=== PATIENT | female | born 1950 ===

== ENCOUNTER 2018-08-15 00:50 | Inpatient (IN) | payer MEDICARE, MEDICAID ==
[2018-08-15 01:03] VITALS: BMI 30.5
[2018-08-15 01:05] VITALS: O2SAT 96
--- NOTE | 2018-08-15 01:08 | ED PDOC ---
Psych Transfer Clearance - Clearance Statement Clearance Statement: Reviewed vital signs, lab results and transfer papers. Patient clinically stable for psychiatric admission. pt was cleared by previous attending - Dr Hayes
[2018-08-15] MEDS ORDERED: Alum-Mag Hydrox-Simethicone Susp (30 mL) PO PRN (01:28)
[2018-08-15] MEDS ORDERED: Magnesium Hydroxide Susp 30 ml UD PO PRN (01:28)
[2018-08-15] MEDS ORDERED: Bismuth Subsalicylate 262 mg/15 ml Sus (240 ml) PO PRN (01:28)
--- NOTE | 2018-08-15 02:18 | PCM.BM ---
<Stephanie Dill - Last Filed: 08/15/18 02:16> Treatment Plan Problems - Problems identified on initial assessmt Anxiety Date Initiated: 08/15/18 Time Initiated: 02:16 Assessment reference: NA Status: Active Altered Sleep Patterns Date Initiated: 08/15/18 Time Initiated: 02:16 Assessment reference: NA Status: Active Treatment assets and liabiliti Patient Assests: cooperative, ADL independent, negotiates basic needs Patient Liabilities: physical pain, relationship conflicts - Milieu Protocol Maintain good personal hygiene: daily Encourage regular showers, daily Remind patient to perform daily oral care, daily Assist patient to perform ADL's Conduct patient checks and document Observation sheet: Q15 minutes Maintain personal safety: every shift Educate patient to report safety concerns to staff, every shift Monitor environment for contraband/sharps Medication safety: Monitor for expected outcome, potential side effects: every shift, Assess barriers to learning: every shift, Assess readiness for medication education: every shift <Any Lamb - Last Filed: 08/15/18 09:43> - Diagnosis (1) Schizoaffective disorder Status: Acute Interventions: Medication management, Individual and group therapy, Psychoeducation 08/15/18 09:43 <Nayely Lewis - Last Filed: 08/16/18 10:52> Family Contact Family involvement: Famliy/SO not involved - Outside Agency [facility] Residential Care involvment: Following patient during stay, Information-sharing Agency contact name: Luis - renal case managermanager of application development contact number: [phone] [facility] Care involvment: Information-sharing Agency contact name: Dr. Froy MD Agency contact number: [phone] - Goals for Treatment Patient goals for treatment: Pt to be encouraged to attend activity and clinical groups 3-5x per week to decrease symptoms of paranoia, delusions and employ reality testing. Pt to be encouraged to participate in group milieu to develop coping skills to reduce psychiatric hospitalizations and further decompensation. Coordinate discharge resources needs by providing referral for psychiatric treatment follow up in the community. Discharge/Continuing Care - Education Needs Education Needs: Patient Medication, Patient Diagnosis/Disease Process, Patient Coping Skills, Patient Community resources, Patient Activities of Daily Living, Patient Uses of Medical Equipment, Patient Health Practices/Safety, Patient Personal Hygiene/Grooming, Patient Aftercare Safety Plan - Discharge Discharge Criteria: Tolerates medication w/o severe side effects, Free of Suicidal thoughts, Free of paranoid thoughts, Free of agitation, Normal sleep pattern, Ability to care for self, Reduction of target symptoms Discharge to:: [facility] (Pt is a resident at [facility]) - Additional Comments 08/16/18 10:46 Pt seen and discussed in team meeting. Reason for hospitalization reviewed. Pt reported "I don't want to kill myself kayla." Pt reported she was referred to the ED due to suicide ideation following a recent breakup with significant other and also because she sees a black cat. Pt reported seeing the black cat in her room, in the apartment and presently in the hospital. Pt reported that once she sees the black cat she cannot sleep or stay focused. Pt reported feeling anxious as a result of seeing the black cat. Reality testing employed, not accepted by pt. Pt stated "It is real, i see it right there." Pt was observed to be pointing tot he back of the room. Pt's social and medical issues reviewed. Pt's medications reviewed and discussed per clinical need. See attending psychiatrist progress note. Pt agreeable to continue Geodon and increase per clinical presentation. Psycho-education regarding medication provided. Tx plan reviewed and pt verbalized agreement; RM monitoring, q15, group milieu, medication evaluation by attending psychiatrist; family meeting if family involved in care; and SW to obtain collateral information. Pt provided display card writer with verbal and written consent to contact [facility] and [facility] manager wound for collateral information. SW to continue to follow case. - Treatment Team Participation Discussed with Family/SO: No Was Patient/Family/SO present at Treatment Team Meeting: Yes
[2018-08-15 08:08] LABS: IRON 44 ug/dL (37-170)
[2018-08-15 08:19] LABS: % IRON SATURATION 11 % (20-55); TOTAL IRON BINDING CAPACITY 421 ug/dL (250-450)
[2018-08-15 08:27] LABS: T4 7.72 ug/dl (5.5-11.0)
[2018-08-15 08:44] LABS: FERRITIN 17.3 ng/Ml (11.1-264.0)
--- NOTE | 2018-08-15 08:56 | PCM.PSYCH ---
Initial Psychiatric Evaluation - Initial Psychiatric Evaluation Type of Admission: Voluntary Legal Status: Capacity Chief Complaint (in patient's own words): "I don't want to live anymore." Patient's Reaction to Hospitalization: HPI: 68 yo female, resident at [facility], currently treated w/ Trazodone, Zoloft and Geodon, presents w/ worsening depression/anxiety, feelings that she wants to w/o acute suicidal plan, and visual hallucination of a black cat. Patient is a poor historian. A + O x 3. PPHx: Reports outpatient tx at [facility] and compliance w/ Trazodone, Zoloft and Geodon; h/o prior psych history 40 yrs ago at [facility]; h/o ECT (as per records) PMHx: HTN, Vit D deficiency, Constipation, GERD ALL: PCN SHx: Lives at [facility], denies drugs/etoh/cig use Current Medications: Active Medications Generic Name Dose Route Start Last Admin Trade Name Freq PRN Reason Stop Dose Admin Acetaminophen 650 mg 08/15/18 01:28 08/15/18 01:58 Tylenol 325mg Tab PO 650 mg Q4 PRN Administration Pain, moderate (4-7) Al Hydrox/Mg Hydrox/Simethicone 30 ml 08/15/18 01:28 Maalox Plus 30 Ml PO Q4 PRN Dyspepsia Bismuth Subsalicylate 524 mg 08/15/18 01:28 Pepto-Bismol PO Q4 PRN Diarrhea Lorazepam 0.5 mg 08/15/18 01:28 Ativan PO 08/29/18 01:29 HS PRN Insomnia Lorazepam 0.5 mg 08/15/18 01:28 08/15/18 02:00 Ativan PO 08/29/18 01:29 0.5 mg Q6 PRN Administration Anixety/Agitation Magnesium Hydroxide 30 ml 08/15/18 01:28 Milk Of Magnesia PO HS PRN Constipation Past Psychiatric History - Past Psychiatric History Previous Treatment History: Inpatient Pertinent Medical Hx (Current Medical&Sleep Prob, Allergies): Allergies Allergy/AdvReac Type Severity Reaction Status Date / Time Penicillins Allergy Intermediate RASH Verified 07/02/18 21:09 Sertraline [Zoloft] 50 mg PO DAILY 11/10/15 Ziprasidone HCl 20 mg PO BID 09/23/16 Aspirin [Aspirin Chewable] 81 mg PO DAILY 10/05/16 Acetaminophen [Arthritis Pain] 650 mg PO TID 07/31/17 Bisoprolol/HCTZ [Ziac 10-6.25 mg] 1 tab PO DAILY 07/31/17 Cholecalciferol (Vitamin D3) [Vitamin D3] 1,000 unit PO DAILY 07/31/17 amLODIPine [Norvasc] 5 mg PO DAILY 07/31/17 Meclizine [Meclizine*] 25 mg PO Q6 #30 tab 09/19/17 Pantoprazole [Protonix EC Tab] 40 mg PO DAILY #14 ect 10/27/17 Linaclotide [Linzess] 72 mcg PO DAILY 07/02/18 traZODone [trazodone Hydrochloride] 100 mg PO DAILY 07/02/18 Review of Systems - Psychiatric Psychiatric: As Per HPI, Abnormal Sleep Pattern, Anhedonia, Anxiety, Behavioral Changes, Change in Appetite, Depression, Difficulty Concentrating, Hallucinations, Memory Loss, Suicidal Ideation, Visual Hallucinations Mental Status Examination - Personal Presentation Personal Presentation: Looks older than stated age - Affect Affect: Other (Labile) - Motor Activity Motor Activity: Calm - Reliability in Providing Information Reliability in Providing Information: Poor, due to cognitve impairment - Speech Speech: Coherent, Other (Poverty of speech) - Formal Thought Process Formal Thought Process: Hallucinations - Hallucinations/Delusions Hallucinations: Visual - Obsessions/Compulsions Obsessions: No Compulsions: No - Cognitive Functions Orientation: Person, Place, Situation, Time Sensorium: Alert Attention/Concentration: Easily distracted Judgement: Imparied, as evidence by: Lack of insight into illness Memory: Recent impaired, as evidence by: Inability to recall events of the day, Recent imparied as evidence by:Inability to complete 3/3 object recall - Risk Risk: Suicidal, Diminished functioning - Strength & Assets Inventory Strength & Assets Inventory: Cooperative - Limitations Limitations: Decreased memory, recent DSM 5 DX - DSM 5 DSM 5 Diagnosis: Schizoaffective Disorder - Recommended/Plan of Treatment Treatment Recommendations and Plan of Treatment: Schizoaffective Disorder -Admit to psychiatry unit -Individual and group therapy -Titrate Zoloft -Titrate Geodon -Continue Trazodone -Medicine consult -Disposition planning Projected ELOS: 5-9 days Discharge Plan and Discharge Criteria: Discharge when patient is psychiatrically stable - Smoking Cessation Smoking Cessation Initiated: No Reason for not providing: Not indicated
--- NOTE | 2018-08-15 12:33 | CP.PCM.CON ---
<Joey Nolan - Last Filed: 08/15/18 17:17> History of Present Illness - History of Present Illness History of Present Illness: Patient seen and examined with Dr Mae 68-year-old female with past medical history of hypertension, hyperlipidemia, depression, anxiety, asthma and headaches admitted with SI. she reports feeling very anxious. Otherwise she denies fever, chills, chest pain, palpitations, diaphoresis, nausea, shortness of breath, urinary symptoms or any weakness or numbness. PMD: Dr Mae PMH: as above PSH: Endoscopy Meds: as above FH: denies Allergies to PCN SH: denies alcohol, ilicit drugs or tobacco Review of Systems - Review of Systems All systems: reviewed and no additional remarkable complaints except (HPI) Past Patient History - Infectious Disease Hx of Infectious Diseases: None - Past Medical History & Family History Past Medical History?: Yes - Past Social History Smoking Status: Never Smoked - CARDIAC Hx Hypercholesterolemia: Yes Hx Hypertension: Yes - PULMONARY Hx Asthma: Yes - NEUROLOGICAL Hx Seizures: No - HEENT Hx HEENT Problems: No - RENAL Hx Chronic Kidney Disease: No - ENDOCRINE/METABOLIC Hx Endocrine Disorders: No - HEMATOLOGICAL/ONCOLOGICAL Hx Human Immunodeficiency Virus (HIV): No - INTEGUMENTARY Hx Dermatological Problems: No - MUSCULOSKELETAL/RHEUMATOLOGICAL Hx Falls: No - GASTROINTESTINAL Hx Gastrointestinal Disorders: No - GENITOURINARY/GYNECOLOGICAL Hx Sexually Transmitted Disorders: No - PSYCHIATRIC Hx Anxiety: Yes Hx Bipolar Disorder: Yes Hx Depression: Yes Hx Schizophrenia: Yes Hx Substance Use: No - SURGICAL HISTORY Hx Surgeries: No - ANESTHESIA Hx Anesthesia: Yes Hx Anesthesia Reactions: No Hx Malignant Hyperthermia: No Meds Allergies/Adverse Reactions: Allergies Allergy/AdvReac Type Severity Reaction Status Date / Time Penicillins Allergy Intermediate RASH Verified 07/02/18 21:09 - Medications Medications: Current Medications Acetaminophen (Tylenol 325mg Tab) 650 mg PO Q4 PRN PRN Reason: Pain, moderate (4-7) Last Admin: 08/15/18 01:58 Dose: 650 mg Al Hydrox/Mg Hydrox/Simethicone (Maalox Plus 30 Ml) 30 ml PO Q4 PRN PRN Reason: Dyspepsia Bismuth Subsalicylate (Pepto-Bismol) 524 mg PO Q4 PRN PRN Reason: Diarrhea Lorazepam (Ativan) 0.5 mg PO HS PRN PRN Reason: Insomnia Stop: 08/29/18 01:29 Lorazepam (Ativan) 0.5 mg PO Q6 PRN PRN Reason: Anixety/Agitation Stop: 08/29/18 01:29 Last Admin: 08/15/18 09:48 Dose: 0.5 mg Magnesium Hydroxide (Milk Of Magnesia) 30 ml PO HS PRN PRN Reason: Constipation Sertraline HCl (Zoloft) 100 mg PO DAILY HANNA Trazodone HCl (Desyrel) 100 mg PO HS HANNA Ziprasidone (Geodon Cap) 40 mg PO BID HANNA Physical Exam - Constitutional Appears: No Acute Distress - Head Exam Head Exam: NORMAL INSPECTION - Respiratory Exam Respiratory Exam: Clear to Auscultation Bilateral - Cardiovascular Exam Cardiovascular Exam: REGULAR RHYTHM, +S1, +S2 - GI/Abdominal Exam GI & Abdominal Exam: Soft. absent: Distended, Tenderness - Extremities Exam Extremities exam: Negative for: calf tenderness, pedal edema - Neurological Exam Neurological exam: Alert, Oriented x3 - Psychiatric Exam Psychiatric exam: Flat Affect - Skin Skin Exam: Dry, Warm Results - Vital Signs Recent Vital Signs: Last Vital Signs Temp 97.7 F 08/15/18 06:00 Pulse 64 08/15/18 06:00 Resp 18 08/15/18 06:00 BP 124/77 08/15/18 06:00 Pulse Ox 96 08/15/18 01:03 - Labs Labs: Laboratory Results - last 24 hr 08/15/18 08/15/18 08/15/18 07:42 07:42 07:42 Hemoglobin A1c 5.3 Iron 44 TIBC 421 % Saturation 11 L Ferritin 17.3 Triglycerides 61 Cholesterol 157 LDL Cholesterol Direct 73 HDL Cholesterol 75 H Vitamin B12 412 Free T4 Thyroxine (T4) 7.72 TSH 3rd Generation 1.26 08/15/18 07:42 Hemoglobin A1c Iron TIBC % Saturation Ferritin Triglycerides Cholesterol LDL Cholesterol Direct HDL Cholesterol Vitamin B12 Free T4 1.23 Thyroxine (T4) TSH 3rd Generation Assessment & Plan - Assessment and Plan (Free Text) Assessment: 68-year-old female with past medical history of hypertension, hyperlipidemia, depression, anxiety admitted to psych unit due to SI. Plan: - VSS, afebrile - labs reviewed - medically stable - resume home meds - psych management as per psych team - continue plan as ordered <Hussain Mae K - Last Filed: 08/19/18 08:24> Meds - Medications Medications: Current Medications Acetaminophen (Tylenol 325mg Tab) 650 mg PO Q4 PRN PRN Reason: Pain, moderate (4-7) Last Admin: 08/16/18 15:16 Dose: 650 mg Al Hydrox/Mg Hydrox/Simethicone (Maalox Plus 30 Ml) 30 ml PO Q4 PRN PRN Reason: Dyspepsia Amlodipine Besylate (Norvasc) 5 mg PO DAILY [facility] Last Admin: 08/18/18 08:30 Dose: 5 mg Aspirin (Aspirin Chewable) 81 mg PO DAILY [facility] Last Admin: 08/18/18 08:27 Dose: 81 mg Atorvastatin Calcium (Lipitor) 10 mg PO DAILY [facility] Last Admin: 08/18/18 08:26 Dose: 10 mg Bismuth Subsalicylate (Pepto-Bismol) 524 mg PO Q4 PRN PRN Reason: Diarrhea Bisoprolol Fumarate (Zebeta) 10 mg PO DAILY [facility] Last Admin: 08/18/18 08:30 Dose: 10 mg Gabapentin (Neurontin) 400 mg PO Q12 [facility] Last Admin: 08/18/18 21:14 Dose: 400 mg Hydrochlorothiazide (Hydrodiuril) 6.25 mg PO DAILY [facility] Last Admin: 08/18/18 08:28 Dose: 6.25 mg Lorazepam (Ativan) 0.5 mg PO HS PRN PRN Reason: Insomnia Stop: 08/29/18 01:29 Lorazepam (Ativan) 0.5 mg PO Q4 PRN PRN Reason: Anixety/Agitation Stop: 08/29/18 17:01 Last Admin: 08/15/18 23:44 Dose: 0.5 mg Losartan Potassium (Cozaar) 25 mg PO DAILY [facility] Last Admin: 08/18/18 08:28 Dose: 25 mg Magnesium Hydroxide (Milk Of Magnesia) 30 ml PO HS PRN PRN Reason: Constipation Sertraline HCl (Zoloft) 100 mg PO DAILY [facility] Last Admin: 08/18/18 09:21 Dose: 100 mg Trazodone HCl (Desyrel) 100 mg PO HS [facility] Last Admin: 08/18/18 21:14 Dose: 100 mg Ziprasidone (Geodon Cap) 40 mg PO BID [facility] Last Admin: 08/18/18 16:38 Dose: 40 mg Results - Vital Signs Recent Vital Signs: Last Vital Signs Temp 97.3 F L 08/19/18 06:00 Pulse 53 L 08/19/18 06:00 Resp 18 08/19/18 06:00 BP 127/67 08/19/18 06:00 Pulse Ox 96 08/15/18 01:03 Assessment & Plan - Assessment and Plan (Free Text) Assessment: Patient was personally seen and examined by me in rounds with residents. Available labs and diagnostic data reviewed. Case, Patient's condition and management plan discussed with residents in rounds. Agree with resident's progress note. Plan: As ordered.
[2018-08-15 17:19] LABS: FOLATE 5.2 ng/mL
--- NOTE | 2018-08-16 08:59 | PCM.PYCHPN ---
Psychiatric Progress Note - Psychiatric Progress Note Patient seen today, length of contact: Pt evaluated, case discussed w/ team, chart reviewed Patient Chief Complaint: "I still see the black cat." Problems Identified/Issues Discussed: Patient denies feeling acutely depressed or suicidal. She continues to report feeling anxious and continues to have visual hallucinations of a black cat. She continues to have poor insight into her psychosis. Medication Change: Yes (Titrate Geodon and Zoloft) Medical Record Reviewed: Yes Consults ordered or reviewed: Medicine consult Mental Status Examination - Cognitive Function Orientation: Person, Place, Situation, Time Memory: Impaired Attention: Poor Concentration: Poor Association: Loose Fund of Knowledge: Poor Decription of patient's judgement and insights: Poor I/J - Mood Mood: Anxious - Affect Affect: Other (Labile) - Speech Speech: Loud - Formal Thought Process Formal Thought Process: Hallucinations Psychotic Thoughts and Behaviors: +VH of a black cat - Suicidal Ideation Suicidal Ideation: No - Homicidal Ideation Homicidal Ideation: No Goal/Treatment Plan - Goal/Treatment Plan Need for Continued Stay: Remain at risks for inpatient hospitalization, Discharge may exacerbated symptoms Progress Toward Problem(s) and Goals/Treatment Plan: Schizoaffective Disorder -Individual and group therapy -Titrate Zoloft -Titrate Geodon -Continue Trazodone -Medicine consult -Disposition planning Estimated Date of D/C: 08/21/18 - Smoking Cessation Smoking Cessation Initiated: No Reason for not providing: Not indicated
[2018-08-16] MEDS ORDERED: HCTZ PO SCH (09:00)
[2018-08-16] MEDS ORDERED: BISOPROLOL PO SCH (09:00)
--- NOTE | 2018-08-16 09:51 | PN ---
DATE: 08/16/2018 SUBJECTIVE: The patient seen and examined. Interim events noted. Psychiatric followup and intervention noted and appreciated. The patient remains in geropsych unit. Awake, responsive, ambulatory. Feels better. Denies any chest pain or shortness of breath. PHYSICAL EXAM: GENERAL: The patient is in no acute distress. VITAL SIGNS: Stable. HEART: . LUNGS: exchange. ABDOMEN: Soft, nontender. EXTREMITIES: No edema, calf swelling. No tenderness. No acute ischemia. CENTRAL NERVOUS SYSTEM: Essentially unchanged. DIAGNOSTIC DATA: Available diagnostic data reviewed. ASSESSMENT AND PLAN: Overall, the patient's general medical condition is stable. Plan as ordered. Hussain Mae MD
--- NOTE | 2018-08-17 08:16 | PCM.PYCHPN ---
Psychiatric Progress Note - Psychiatric Progress Note Patient seen today, length of contact: Pt evaluated, case discussed w/ team, chart reviewed Patient Chief Complaint: "I still see the black cat." Problems Identified/Issues Discussed: Patient continues to report feeling anxious and continues to have visual hallucinations of a black cat. She continues to have poor insight into her psychosis. She denies acute suicidal ideation/plan/intent. She denies adverse effects to medications. Medication Change: No Medical Record Reviewed: Yes Consults ordered or reviewed: Medicine consult Mental Status Examination - Cognitive Function Orientation: Person, Place, Situation, Time Memory: Impaired Attention: Poor Concentration: Poor Association: Loose Fund of Knowledge: Poor Decription of patient's judgement and insights: Poor I/J - Mood Mood: Anxious - Affect Affect: Other (Labile) - Speech Speech: Loud - Formal Thought Process Formal Thought Process: Hallucinations Psychotic Thoughts and Behaviors: +VH of a black cat - Suicidal Ideation Suicidal Ideation: No - Homicidal Ideation Homicidal Ideation: No Goal/Treatment Plan - Goal/Treatment Plan Need for Continued Stay: Remain at risks for inpatient hospitalization, Discharge may exacerbated symptoms Progress Toward Problem(s) and Goals/Treatment Plan: Schizoaffective Disorder -Individual and group therapy -Continue Trazodone, Geodon and Zoloft -Medicine consult -Disposition planning Estimated Date of D/C: 08/21/18
--- NOTE | 2018-08-17 13:50 | PN ---
DATE: 08/17/2018 SUBJECTIVE: The patient seen and examined. Interim events noted. The patient feels okay. Denies any chest pain or shortness of breath. PHYSICAL EXAMINATION: GENERAL: The patient is in no acute distress. VITAL SIGNS: Stable. HEART: S1 and S2. Normal and regular. LUNGS: Good bilateral air exchange. ABDOMEN: Soft and nontender. EXTREMITIES: No edema. No calf swelling. No tenderness. No acute ischemia. CENTRAL NERVOUS SYSTEM: Essentially unchanged. DIAGNOSTIC DATA: Available diagnostic data reviewed. ASSESSMENT AND PLAN: Overall, the patient's general medical condition is stable. Plan as ordered. Case and plan discussed with psychiatrist. Hussain Mae MD
--- NOTE | 2018-08-18 08:29 | PCM.PYCHPN ---
Psychiatric Progress Note - Psychiatric Progress Note Patient seen today, length of contact: Pt evaluated, case discussed w/ team, chart reviewed Patient Chief Complaint: Psychosis Problems Identified/Issues Discussed: Patient continues to report feelings anxious and paranoid. She denies acute visual hallucinations of a black cat, but continues to have poor reality testing that the cat is not real. She is odd at times, but is calm and cooperative towards staff. She denies acute suicidal ideation/plan/intent. She denies adverse effects to medications. Medication Change: No Medical Record Reviewed: Yes Consults ordered or reviewed: Medicine consult Mental Status Examination - Cognitive Function Orientation: Person, Place, Situation, Time Memory: Impaired Attention: Poor Concentration: Poor Association: WNL Fund of Knowledge: Poor Decription of patient's judgement and insights: Poor I/J - Mood Mood: Anxious - Affect Affect: Constricted - Speech Speech: Appropriate - Formal Thought Process Formal Thought Process: Paranoia Psychotic Thoughts and Behaviors: +Paranoia - Suicidal Ideation Suicidal Ideation: No - Homicidal Ideation Homicidal Ideation: No Goal/Treatment Plan - Goal/Treatment Plan Need for Continued Stay: Remain at risks for inpatient hospitalization, Discharge may exacerbated symptoms Progress Toward Problem(s) and Goals/Treatment Plan: Schizoaffective Disorder -Individual and group therapy -Continue Trazodone, Geodon and Zoloft -Medicine consult -Obtain collateral history -Disposition planning Estimated Date of D/C: 08/21/18
--- NOTE | 2018-08-18 12:58 | PN ---
DATE: 08/18/2018 SUBJECTIVE: The patient is seen and examined. Interim events noted. Psychiatry followup and intervention noted and appreciated. The patient remains in geropsych unit, awake and responsive. Denies any specific medical complaint. The patient had missed her breast biopsy appointment, which will be rescheduled. The patient otherwise feels okay. PHYSICAL EXAMINATION: GENERAL: The patient is in no acute distress. VITAL SIGNS: Stable. Physical exam in essentially unchanged. DIAGNOSTIC DATA: Available diagnostic data reviewed. ASSESSMENT AND PLAN: Overall, the patient's general medical condition is stable. Plan as ordered. Hussain Mae MD
--- NOTE | 2018-08-19 08:54 | PCM.PYCHPN ---
Psychiatric Progress Note - Psychiatric Progress Note Patient seen today, length of contact: Pt evaluated, case discussed w/ team, chart reviewed Patient Chief Complaint: Psychosis Problems Identified/Issues Discussed: Patient continues to report feeling anxious. She continues to be bizarre and oddly related. She denies currently seeing the black cat and is able to engage in a conversation with the song writer, discussing that it was a hallucination. She denies acute suicidal ideation/plan/intent. She denies adverse effects to medications. Medication Change: No Medical Record Reviewed: Yes Consults ordered or reviewed: Medicine consult Mental Status Examination - Cognitive Function Orientation: Person, Place, Situation, Time Memory: Impaired Attention: Poor Concentration: Poor Association: WNL Fund of Knowledge: Poor Decription of patient's judgement and insights: Poor I/J - Mood Mood: Anxious - Affect Affect: Constricted - Speech Speech: Appropriate - Formal Thought Process Formal Thought Process: Loosening of associations Psychotic Thoughts and Behaviors: Denies acute AH/VH/paranoia - Suicidal Ideation Suicidal Ideation: No - Homicidal Ideation Homicidal Ideation: No Goal/Treatment Plan - Goal/Treatment Plan Need for Continued Stay: Remain at risks for inpatient hospitalization, Discharge may exacerbated symptoms Progress Toward Problem(s) and Goals/Treatment Plan: Schizoaffective Disorder -Individual and group therapy -Continue Trazodone, Geodon and Zoloft -Medicine consult -Disposition planning Estimated Date of D/C: 08/21/18
--- NOTE | 2018-08-20 09:39 | PCM.PYCHPN ---
Psychiatric Progress Note - Psychiatric Progress Note Patient seen today, length of contact: Pt evaluated, case discussed w/ team, chart reviewed Patient Chief Complaint: "I'm okay." Problems Identified/Issues Discussed: Patient is improving clinically. She no longer expresses odd beliefs or has visual hallucinations of a black cat. She was able to understand that the black cat was a hallucination and that she should inform someone if she starts to see the cat again. She denies acute depression, but reports feeling anxious. No AH/SI/HI. She denies adverse effects to medications. Medication Change: No Medical Record Reviewed: Yes Consults ordered or reviewed: Medicine consult Mental Status Examination - Cognitive Function Orientation: Person, Place, Situation, Time Memory: Impaired Attention: Poor Concentration: Poor Association: WNL Fund of Knowledge: Poor Decription of patient's judgement and insights: Improving I/J - Mood Mood: Anxious - Affect Affect: Broad - Speech Speech: Appropriate - Formal Thought Process Formal Thought Process: Loosening of associations Psychotic Thoughts and Behaviors: Denies acute AH/VH/paranoia - Suicidal Ideation Suicidal Ideation: No - Homicidal Ideation Homicidal Ideation: No Goal/Treatment Plan - Goal/Treatment Plan Need for Continued Stay: Discharge may exacerbated symptoms Progress Toward Problem(s) and Goals/Treatment Plan: Schizoaffective Disorder -Individual and group therapy -Continue Trazodone, Geodon and Zoloft -Medicine consult -Disposition planning- patient is improving clinically, will likely discharge tomorrow Estimated Date of D/C: 08/21/18
[2018-08-20 16:58] VITALS: RESP 20; TEMP 96.8
--- NOTE | 2018-08-21 08:07 | PCM.PYCHDC ---
Mental Status Examination - Mental Status Examination Orientation: Person, Place, Situation, Time Memory: Impaired (Chronic mild memory deficits) Mood: Neutral Affect: Broad Speech: Appropriate Concentration: WNL Association: WNL Fund of Knowledge: WNL Formal Thought Process: No Impairment Description of patient's judgement and insight: Fair I/J Psychotic Thoughts and Behaviors: Denies acute AH/VH/paranoia Suicidal Ideation: No Current Homicidal Ideation?: No Discharge Summary - Discharge Note Reason for Hospitalization: HPI: 68 yo female, resident at [facility] longterm, currently treated w/ Trazodone, Zoloft and Geodon, presents w/ worsening depression/anxiety, feelings that she wants to w/o acute suicidal plan, and visual hallucination of a black cat. Patient is a poor historian. A + O x 3. PPHx: Reports outpatient tx at [facility] and compliance w/ Trazodone, Zoloft and Geodon; h/o prior psych history 40 yrs ago at [facility]; h/o ECT (as per records) PMHx: HTN, Vit D deficiency, Constipation, GERD ALL: PCN SHx: Lives at longterm, denies drugs/etoh/cig use Consultations:: List each consultation separately and include: 1. Reason for request. 2. Findings. 3. Follow-up Consultations: Medicine consult Summary of Hospital Course include:: 1. Description of specific treatment plan utilized for patients during their course of treatmen. 2. Summarize the time- course for resolution of acute symptoms and/or regressed behaviors. 3. Describe issues identified and worked on during hospitalization. 4. Describe medication utilized. 5. Describe medical problems identified and treated. 6. Reassessment of suicide risk Summary of Hospital Course: Patient was admitted to the psychiatry unit. Individual and group therapy provided. Patient was stabilized on Zoloft 100 mg PO Daily, Trazodone 100 mg PO HS and Geodon 40 mg PO BID. She no longer reports psychotic symptoms. She denies depression/anxiety/AH/VH/paranoia/delusions. Patient is psychiatrically stable for discharge. Psychoeducation provided on the importance of compliance with treatment and medications. No adverse effects to medications reported. - Diagnosis (1) Schizoaffective disorder Current Visit: Yes Status: Chronic - Final Diagnosis (DSM 5) Condition upon Discharge: STABLE DSM 5: Schizoaffective Disorder Disposition: HOME/ ROUTINE Follow-up Treatment Plan: Schizoaffective Disorder -Continue Trazodone, Geodon and Zoloft -Medicine consult -Discharge back to longterm Prescriptions/Medication Reconciliation: Sertraline [Zoloft] 100 mg PO DAILY #30 tab traZODone [Desyrel] 100 mg PO HS #30 tab Ziprasidone [Geodon Cap] 40 mg PO BID #60 cap - Smoking Cessation Smoking Cessation Medication prescribed: No Reason for not providing: Not indicated - Antipsychotic Medications Pt discharged on 2 or more routine antipsychotic medications: No
[2018-08-21 08:47] VITALS: BP 118/75; PULSE 68
--- NOTE | 2018-08-21 08:55 | PN ---
DATE: MEDICAL FOLLOWUP SUBJECTIVE: The patient is seen and examined. Interim events noted. The patient remains in Geropsych unit, awake and responsive. Denies any specific medical complaints. No chest pain. No shortness of breath. PHYSICAL EXAMINATION: GENERAL: The patient is in no acute distress. VITAL SIGNS: Stable. HEART: S1 and S2, normal and regular. LUNGS: Good bilateral air exchange. ABDOMEN: Soft, nontender. EXTREMITIES: No edema. No calf swelling. No tenderness. No acute ischemia. CENTRAL NERVOUS SYSTEM: Essentially unchanged. DIAGNOSTIC DATA: Available diagnostic data reviewed. IMPRESSION AND PLAN: Overall, the patient's general medical condition is stable. . Hussain Mae MD
--- NOTE | 2018-08-22 09:24 | PN ---
DATE: 08/21/2018 SUBJECTIVE: The patient is seen and examined. Interim events noted. Intervention noted and appreciated. The patient remains in Geropsych unit. Denies any specific complaint. No chest pain. No shortness of breath. No specific issue reported by nursing staff. The patient is in no acute distress. PHYSICAL EXAMINATION: Essentially unchanged. DIAGNOSTIC DATA: Available diagnostic data reviewed. ASSESSMENT AND PLAN: Overall, the patient's general medication condition is stable. Plan as ordered. Hussain Mae MD
== END 2018-08-21 14:25 | disposition home or self-care (01) | DRG 885 ==
LOC: H.ER 00:50 → H.STEP 01:07
PROVIDERS: ADMIT Psychiatry & Neurology Psychiatry; ATTEND Psychiatry & Neurology Psychiatry
PROC: GZHZZZZ Group Psychotherapy (ICD-10-PCS; principal; 2018-08-15)
DX: F25.9 Schizoaffective disorder, unspecified (principal); R45.851 Suicidal ideations; E78.00 Pure hypercholesterolemia, unspecified; E78.5 Hyperlipidemia, unspecified; J45.909 Unspecified asthma, uncomplicated; K21.9 Gastro-esophageal reflux disease without esophagitis; Z88.0 Allergy status to penicillin; I10 Essential (primary) hypertension